=== PATIENT | male | born 1975 | race Caucasian/White ===

== ENCOUNTER 2016-11-07 18:22 | Emergency (ER) | payer BC ==
[~2016-11-07] VITALS: Ht 190.5 cm; Wt 181.4 kg
[~2016-11-07 18:22] MED LIST: VICODIN 500 MG-1 TAB PO
[2016-11-07] MEDS ORDERED: LISINOPRIL20 MG PO (18:41)
[2016-11-07] MEDS ORDERED: METFORMIN1000 MG PO (18:42)
[2016-11-07] MEDS ORDERED: AMARYL2 MG PO (18:42)
[2016-11-07] MEDS ORDERED: ZITHROMAX250 MG PO (18:59)
[2016-11-07] MEDS ORDERED: DELTASONE20 M1 PO (18:59)
== END 2016-11-07 19:12 | disposition home or self-care (01) ==
LOC: ED 18:22
DX: J01.90 Acute sinusitis, unspecified (principal); J40 Bronchitis, not specified as acute or chronic

== ENCOUNTER 2017-02-09 21:37 | Emergency (ER) | payer BC ==
[~2017-02-09] VITALS: Ht 190.5 cm; Wt 172.4 kg
[~2017-02-09 21:37] MED LIST changes: +AMARYL2 MG PO; +DELTASONE20 M1 PO; +LISINOPRIL20 MG PO; +METFORMIN1000 MG PO; +ZITHROMAX250 MG PO
[2017-02-09] MEDS ORDERED: KETOROLAC10 MG PO (23:36)
[2017-02-09] MEDS ORDERED: CYCLOBENZAPRINE5 M3 PO (23:36)
== END 2017-02-10 00:02 | disposition home or self-care (01) ==
LOC: ED 21:37
DX: S39.012A Strain of muscle, fascia and tendon of lower back, initial encounter (principal); W10.9XXA Fall (on) (from) unspecified stairs and steps, initial encounter; Y93.01 Activity, walking, marching and hiking; Y92.9 Unspecified place or not applicable; Y99.9 Unspecified external cause status

== ENCOUNTER → 2018-02-20 | Outpatient (CLI) | payer BC ==
[~2018-02-20] MED LIST changes: +CYCLOBENZAPRINE5 M3 PO; +KETOROLAC10 MG PO
[2018-02-20 13:33] LABS: BASO % 0.3 % (0.0-1.0); EOS # 0.1 10*3/uL (0.0-0.4); EOS % 0.9 % (1.0-4.0); HEMATOCRIT 44.2 % (42.0-52.0); HEMOGLOBIN 14.3 g/dl (14.0-18.0); LYMPH # 1.2 10*3/uL (1.3-4.4); LYMPH % 10.5 % (27.0-41.0); MEAN CELL VOLUME 83.1 fl (80.0-94.0); MEAN CORPUSCULAR HGB 26.9 pg (27.0-31.0); MEAN CORPUSCULAR HGB CONC 32.4 g/dl (33.0-37.0); MEAN PLATELET VOLUME 9.1 fl (9.6-12.3); MONO # 0.4 10*3/uL (0.1-1.0); MONO % 3.6 % (3.0-9.0); NEUT # 9.8 10*3/uL (2.3-7.9); NEUT % 83.8 % (47.0-73.0); PLATELET COUNT AUTOMATED 293 10*3/uL (130-400); RED BLOOD COUNT 5.32 10*6/uL (4.50-5.90); RED CELL DISTRI WIDTH 14.6 % (0-14.5); WHITE BLOOD COUNT 11.7 10*3/uL (4.8-10.8)
[2018-02-20 14:13] LABS: CHLORIDE 105 mmol/L (98-107); POTASSIUM 4.1 mmol/L (3.5-5.1); SODIUM 141 mmol/L (136-145)
[2018-02-20 14:34] LABS: ALKALINE PHOSPHATASE 57 U/L (45-117); BUN 17 mg/dl (7-24); CREATININE 0.85 mg/dL (0.70-1.30); SGOT/AST 17 IU/L (3-35); SGPT/ALT 40 U/L (12-78); TOTAL PROTEIN 8.1 gm/dL (6.4-8.2)
[2018-02-20 15:12] LABS: BILIRUBIN NEGATIVE (NEGATIVE); BLOOD NEGATIVE (NEGATIVE); CLARITY CLEAR (CLEAR); COLOR YELLOW (YELLOW); GLUCOSE 1+ (NEGATIVE); KETONE NEGATIVE (NEGATIVE); LEUKO ESTERASE NEGATIVE (NEGATIVE); NITRITE NEGATIVE (NEGATIVE); SPECIFIC GRAVITY <= 1.005 (1.005-1.030)
[2018-02-20 15:24] LABS: BACTERIA TRACE; RBC 0-2 rbc/hpf (0-2)
== END | disposition home or self-care (01) ==
LOC: LAB 12:59
PROVIDERS: Orthopaedic Surgery
DX: Z01.818 Encounter for other preprocedural examination (principal); S83.241A Other tear of medial meniscus, current injury, right knee, initial encounter; I10 Essential (primary) hypertension; E11.9 Type 2 diabetes mellitus without complications; Z87.891 Personal history of nicotine dependence; X58.XXXA Exposure to other specified factors, initial encounter; Y93.89 Activity, other specified; Y92.89 Other specified places as the place of occurrence of the external cause; Y99.8 Other external cause status

== ENCOUNTER 2018-03-09 20:46 | Emergency (ER) | payer BC ==
[~2018-03-09] VITALS: Wt 181.4 kg
== END 2018-03-09 22:27 | disposition home or self-care (01) ==
LOC: ED 20:46
DX: R60.0 Localized edema (principal); Z79.899 Other long term (current) drug therapy

== ENCOUNTER 2019-05-06 10:04 | Emergency (ER) | payer BC ==
[~2019-05-06] VITALS: Ht 190.5 cm; Wt 176.9 kg
[2019-05-06] MEDS ORDERED: ACULAR 0.5%3 ML OPH (10:45)
[2019-05-06] MEDS ORDERED: Tobrex Ophth S2.5 ML OPH (10:45)
== END 2019-05-06 10:49 | disposition home or self-care (01) ==
LOC: ED 10:04
DX: S05.01XA Injury of conjunctiva and corneal abrasion without foreign body, right eye, initial encounter (principal); Z79.899 Other long term (current) drug therapy; W22.8XXA Striking against or struck by other objects, initial encounter; Y93.89 Activity, other specified; Y92.89 Other specified places as the place of occurrence of the external cause; Y99.8 Other external cause status

== ENCOUNTER 2019-05-15 02:09 | Emergency (ER) | payer BC ==
[~2019-05-15] VITALS: Ht 190.5 cm; Wt 176.9 kg
[~2019-05-15 02:09] MED LIST changes: +ACULAR 0.5%3 ML OPH; +Tobrex Ophth S2.5 ML OPH
== END 2019-05-15 03:30 | disposition home or self-care (01) ==
LOC: ED 02:09
DX: S05.01XA Injury of conjunctiva and corneal abrasion without foreign body, right eye, initial encounter (principal); Z98.890 Other specified postprocedural states; Z79.899 Other long term (current) drug therapy; X58.XXXA Exposure to other specified factors, initial encounter; Y93.89 Activity, other specified; Y92.69 Other specified industrial and construction area as the place of occurrence of the external cause; Y99.9 Unspecified external cause status

== ENCOUNTER 2019-09-14 13:31 | Emergency (ER) | payer BC ==
[~2019-09-14] VITALS: Ht 190.5 cm; Wt 165.6 kg
[2019-09-14] MEDS ORDERED: Motrin,Rufen400 MG PO (15:31)
[2019-09-14] MEDS ORDERED: TYLENOL325 M1 PO (15:31)
== END 2019-09-14 15:59 | disposition home or self-care (01) ==
LOC: ED 13:31
DX: S86.011A Strain of right Achilles tendon, initial encounter (principal); E11.9 Type 2 diabetes mellitus without complications; I10 Essential (primary) hypertension; Z79.899 Other long term (current) drug therapy; Z79.84 Long term (current) use of oral hypoglycemic drugs; X50.1XXA Overexertion from prolonged static or awkward postures, initial encounter; Y93.89 Activity, other specified; Y92.098 Other place in other non-institutional residence as the place of occurrence of the external cause; Y99.8 Other external cause status

== ENCOUNTER 2020-12-13 22:21 | Emergency (ER) | payer BC ==
[~2020-12-13] VITALS: Ht 190.5 cm; Wt 149.7 kg
[~2020-12-13 22:21] MED LIST changes: +Motrin,Rufen400 MG PO; +TYLENOL325 M1 PO
[2020-12-13 23:14] LABS: BASO # 0.1 10*3/uL (0.0-0.1); BASO % 0.6 % (0.0-1.0); EOS # 0.3 10*3/uL (0.0-0.4); EOS % 3.6 % (1.0-4.0); HEMATOCRIT 39.4 % (42.0-52.0); LYMPH # 1.6 10*3/uL (1.3-4.4); LYMPH % 18.6 % (27.0-41.0); MEAN CELL VOLUME 81.4 fl (80.0-94.0); MEAN CORPUSCULAR HGB 27.3 pg (27.0-31.0); MEAN CORPUSCULAR HGB CONC 33.5 g/dl (33.0-37.0); MEAN PLATELET VOLUME 8.5 fl (9.6-12.3); MONO # 0.6 10*3/uL (0.1-1.0); MONO % 6.8 % (3.0-9.0); PLATELET COUNT AUTOMATED 253 10*3/uL (130-400); RED BLOOD COUNT 4.84 10*6/uL (4.50-5.90); RED CELL DISTRI WIDTH 13.8 % (0-14.5); WHITE BLOOD COUNT 8.6 10*3/uL (4.8-10.8)
[2020-12-13 23:28] LABS: BUN 19 mg/dl (7-24); CHLORIDE 109 mmol/L (98-107); CREATININE 0.75 mg/dL (0.70-1.30); POTASSIUM 3.5 mmol/L (3.5-5.1); SODIUM 142 mmol/L (136-145)
[2020-12-14] MEDS ORDERED: CEPHALEXIN500 M1 PO (00:55)
[2020-12-14] MEDS ORDERED: SEPTDS PO (00:55)
== END 2020-12-14 01:14 | disposition home or self-care (01) ==
LOC: ED 22:21
PROVIDERS: Emergency Medicine
DX: L02.416 Cutaneous abscess of left lower limb (principal); E11.65 Type 2 diabetes mellitus with hyperglycemia; I10 Essential (primary) hypertension; Z98.890 Other specified postprocedural states